=== PATIENT | female | born 1940 | race Caucasian/White ===

== ENCOUNTER 2018-06-17 09:32 | Day surgery (SDC) | payer MEDICARE, BC ==
[~2018-06-17 09:32] MED LIST: Lactated Ringers 1,000 ML IV SCH
[2018-06-17] MEDS ORDERED: fentaNYL 100 MCG/2 ML SDV ONE (11:31)
[2018-06-17] MEDS ORDERED: Propofol 200 MG/20 ML SDV ONE (11:31)
--- NOTE | 2018-06-18 10:17 | OR ---
PREOPERATIVE DIAGNOSIS: Personal history of polyp, family history of colon cancer. POSTOPERATIVE DIAGNOSIS: Normal colonoscopic exam. PROCEDURE DONE: Total flexible colonoscopy. INDICATION: This is a 77-year-old female who was recommended to have a followup colonoscopy, her last one being 4 years ago where several polyps were found. She also has a family history of her father with colon cancer. TECHNIQUE: The patient was brought to the endoscopy suite, placed in left lateral decubitus position. She was sedated per AIR TECHNICIAN with propofol. The flexible video colonoscope was then passed transanally under visualization, advanced to the cecum. Examination revealed a normal ascending, transverse, descending, and sigmoid, rectal colon. There was no evidence of any diverticulosis, colitis, polyps, or any other abnormalities. The scope was then withdrawn. She tolerated the procedure well. FINAL IMPRESSION: 1. Essentially normal coloscopic exam. 2. History of prior polyps. 3. Family history of colon cancer. PLAN: Based on her age, I feel that she no longer needs to proceed with colonoscopies. SCM: 06/17/2018 13:35:54 MODL: 06/17/2018 20:42:02 /[id number]
== END 2018-06-17 14:11 | disposition home or self-care (01) ==
LOC: VM.SDS 09:32
PROVIDERS: ATTEND Surgery
DX: Z12.11 Encounter for screening for malignant neoplasm of colon (principal); I10 Essential (primary) hypertension; E78.00 Pure hypercholesterolemia, unspecified; M17.0 Bilateral primary osteoarthritis of knee; Z86.010 Personal history of colon polyps; Z79.82 Long term (current) use of aspirin; Z79.899 Other long term (current) drug therapy; Z80.0 Family history of malignant neoplasm of digestive organs
CPT/HCPCS: G0105; J2704; J3010; J7120

== ENCOUNTER 2019-09-24 12:40 | Inpatient (IN) | payer MEDICARE, BC ==
[2019-09-24] MEDS ORDERED: Acetaminophen/Diphenhydramine 500-25 MG Tab PO PRN (16:45)
[2019-09-24] MEDS: traMADol 50 MG Tab PO PRN (17:56)
[2019-09-24] MEDS: Carvedilol 3.125 MG Tab PO SCH (17:56)
[2019-09-24] MEDS ORDERED: Apixaban 2.5 MG Tab PO ONE (18:00)
[2019-09-24] MEDS: Acetaminophen 650 MG Tab.ER PO SCH (20:12)
--- NOTE | 2019-09-24 23:43 | HP ---
PRIMARY DIAGNOSIS: Weakness, deconditioning. HISTORY OF PRESENT ILLNESS: The patient is an 78-year-old female, who is currently undergoing recovery from acute saddle bilateral pulmonary embolus. This had occurred in the setting shortly after right knee replacement surgery. She had undergone elective right knee replacement surgery at [facility] on 09/14/2019, had been discharged home on 09/15/2019. Then she started getting shortness of breath. She went to the emergency room at [facility] on 09/17/2019 and was found to have acute bilateral saddle PE and was sent back to [place]. While she was at [facility], it was noted that she was hypoxic. She was just treated conservatively with heparin and then switched to Eliquis. She did not need any sort of thrombectomy. While she was hospitalized she was also found to have a non-STEMI type 2. The patient was noted to then become quite deconditioned and quite weak with walking and is in need swing bed for reconditioning to be able to return home. The patient did have problems with a fever blister on her lip as well. MEDICATIONS: Medications that she is currently on are: Tylenol 650 b.i.d.; Tylenol PM 1 at bedtime p.r.n.; carvedilol 3.125 mg 1 pill twice a day; Eliquis 5 mg 1 pill twice a day, to start I believe in 2 weeks; Eliquis 10 mg 1 p.o. b.i.d.; glucosamine chondroitin complex 1 pill daily; multivitamin 1 pill daily; nystatin topical b.i.d. p.r.n. rash; MiraLAX 17 g daily; Zocor 10 mg 1 at bedtime; tramadol 50 mg q.6 hours p.r.n. ALLERGIES: None known. PAST MEDICAL HISTORY: The patient has a history of hypertension, hypercholesterolemia, obesity. She has had degenerative osteoarthritis of the right and left knee, known heart murmur by echocardiogram on 11/18/2018. The patient has had osteopenia with disorder of her bones. She has had varicose veins, chronic right shoulder pain. She has had right-sided low back pain, obesity. The patient had adenomatous colon polyps with her last scope on 02/18/2014, she had 3 polyps. In 2018, she had a normal scope. Her last DEXA scan was in 2016 and was stable. Next scan to be in 3 years. She has had a lipoma on her back, 1 cm, by her scapular area. She had a normal Cardiolite stress test in 2005, in 04/01/2018 was negative. She has had ptosis of her eyelids. Her echocardiogram on 11/18/2018 showed ejection fraction 65%. No significant aortic regurgitation. Trace mitral regurgitation. Trivial tricuspid regurgitation. PAST SURGICAL HISTORY: She has had C-sections x2, cataract surgery x2, YAG capsulotomy in the left eye on 04/27/2019, and she had right knee replacement surgery on 09/14/2019. FAMILY MEDICAL HISTORY: Mother has had bladder cancer, lung problems. Father has had a stroke. Sister has had hypertension, acute renal failure. Twin had some sort of skin cancer. One sister has diabetes. SOCIAL HISTORY: The patient is in 2008. She does not smoke. She rarely consumes alcohol. She [place] in [place] . 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 REVIEW OF SYSTEMS: She has a cold sore on her upper lip. No coughing. No shortness of breath. Does get deconditioned after walking about 10 feet. She has had some swelling on her right knee, more at the site of her surgery. Has no numbness or tingling. Mood is good. She has felt weak. PHYSICAL EXAMINATION: VITAL SIGNS: Her temperature is 37.7, pulse 80, blood pressure is 155/65, respirations are 20, saturations are 97%. SKIN: She has a cold sore on her right upper lip. She has multiple bruising on her forearms, left and right side. Her knee incision is well reapproximated. There is some edema around her knee. HEENT: Pharynx is normal. HEART: Regular rate and rhythm without murmurs or bruits. LUNGS: Clear to auscultation. NECK: Supple. No anterior cervical adenopathy. ABDOMEN: Soft and nontender. No hepatosplenomegaly. NEUROLOGIC: She moves all extremities symmetric. She is somewhat weak though throughout, generalized. PSYCHIATRIC: She is oriented x3. Mood is good. IMPRESSION: 1. Weakness post knee surgery. 2. Bilateral saddle pulmonary embolus. 3. Recent hypoxemia related to pulmonary embolism, which is improved. 4. Weakness, generalized from knee surgery. 5. Hypertension, which has been lifestyle controlled, but slightly elevated. 6. Hypercholesterolemia. 7. Fever blister. PLAN: We will have the patient be set up for physical therapy and occupational therapy. We will monitor her blood pressure. May need to more aggressively treat this. We will check a urine test on patient as well as blood work. The patient will have some Vaseline to her upper lip as it seems like she had received possibly Valtrex prior to being transferred from [place]. The patient will need to keep outpatient followup orthopedic appointments. I did talk with patient about code level status and she does desire full resuscitation. I anticipate patient's stay here on swing bed to be about a 2- week stay depending on how she progresses with therapies. We will have Social Service to follow along with patient. GM09/24/2019 17:10:19 MODL: 09/24/2019 23:33:14 /[id number]
[2019-09-25 07:16] LABS: CHLORIDE,CL 101 mmol/L (98-107); SODIUM,NA 140 mmol/L (136-145)
[2019-09-25 07:30] LABS: ANION GAP 13.1 mmol/L (10-20)
[2019-09-25] MEDS: Multivitamin, Stress Formula with Zinc Tab PO SCH (08:46)
[2019-09-25] MEDS: Carvedilol 3.125 MG Tab PO SCH ×2 (08:46→18:01)
[2019-09-25] MEDS: Simvastatin 10 MG Tab PO SCH (08:47)
[2019-09-25] MEDS: Acetaminophen 650 MG Tab.ER PO SCH ×2 (08:47→19:34)
[2019-09-25] MEDS: Apixaban 2.5 MG Tab PO SCH ×2 (08:47→19:36)
[2019-09-25] MEDS: Polyethylene Glycol 3350 Powder 17 GM Packet PO SCH ×2 (08:51→11:39)
[2019-09-25] MEDS: Glucosamine 500 MG Cap PO SCH (11:39)
[2019-09-25] MEDS: traMADol 50 MG Tab PO PRN (11:42)
--- NOTE | 2019-09-25 12:11 | PCM.SN ---
- Free Text/Narrative Note: Reviewed labs per PCP request as she is out today. Hgb stable. Rest without urgent abnormalities. Can be further addressed by PCP next week.
[2019-09-26] MEDS: Acetaminophen 650 MG Tab.ER PO SCH ×2 (08:07→20:46)
[2019-09-26] MEDS: Simvastatin 10 MG Tab PO SCH (08:07)
[2019-09-26] MEDS: Apixaban 2.5 MG Tab PO SCH ×2 (08:09→20:47)
[2019-09-26] MEDS: Multivitamin, Stress Formula with Zinc Tab PO SCH (08:09)
[2019-09-26] MEDS: Glucosamine 500 MG Cap PO SCH (08:09)
[2019-09-26] MEDS: Carvedilol 3.125 MG Tab PO SCH ×2 (08:09→17:50)
[2019-09-26] MEDS: Polyethylene Glycol 3350 Powder 17 GM Packet PO SCH (08:09)
[2019-09-26] MEDS: traMADol 50 MG Tab PO PRN (11:21)
[2019-09-27] MEDS: Glucosamine 500 MG Cap PO SCH (07:53)
[2019-09-27] MEDS: Multivitamin, Stress Formula with Zinc Tab PO SCH (07:53)
[2019-09-27] MEDS: Acetaminophen 650 MG Tab.ER PO SCH ×2 (07:53→19:39)
[2019-09-27] MEDS: Carvedilol 3.125 MG Tab PO SCH ×2 (07:53→17:59)
[2019-09-27] MEDS: Simvastatin 10 MG Tab PO SCH (07:53)
[2019-09-27] MEDS: Polyethylene Glycol 3350 Powder 17 GM Packet PO SCH (07:55)
[2019-09-27] MEDS: Apixaban 2.5 MG Tab PO SCH ×2 (07:55→19:41)
[2019-09-27] MEDS: traMADol 50 MG Tab PO PRN ×2 (07:57→14:11)
[2019-09-28] MEDS: traMADol 50 MG Tab PO PRN ×3 (05:58→20:48)
[2019-09-28] MEDS: Simvastatin 10 MG Tab PO SCH (08:12)
[2019-09-28] MEDS: Multivitamin, Stress Formula with Zinc Tab PO SCH (08:12)
[2019-09-28] MEDS: Polyethylene Glycol 3350 Powder 17 GM Packet PO SCH (08:12)
[2019-09-28] MEDS: Carvedilol 3.125 MG Tab PO SCH ×2 (08:12→18:30)
[2019-09-28] MEDS: Apixaban 2.5 MG Tab PO SCH ×2 (08:12→19:21)
[2019-09-28] MEDS: Glucosamine 500 MG Cap PO SCH (08:12)
[2019-09-28] MEDS: Acetaminophen 650 MG Tab.ER PO SCH ×2 (08:12→19:20)
[2019-09-29] MEDS: Acetaminophen 650 MG Tab.ER PO SCH ×2 (07:30→21:08)
[2019-09-29] MEDS: Carvedilol 3.125 MG Tab PO SCH ×2 (07:31→17:29)
[2019-09-29] MEDS: Glucosamine 500 MG Cap PO SCH (07:32)
[2019-09-29] MEDS: Polyethylene Glycol 3350 Powder 17 GM Packet PO SCH (07:32)
[2019-09-29] MEDS: Multivitamin, Stress Formula with Zinc Tab PO SCH (07:32)
[2019-09-29] MEDS: Simvastatin 10 MG Tab PO SCH (07:32)
[2019-09-29] MEDS: Apixaban 2.5 MG Tab PO SCH ×2 (07:32→20:20)
[2019-09-29] MEDS: tiZANidine 4 MG Tab PO PRN (09:28)
--- NOTE | 2019-09-29 10:13 | PN ---
Progress Note for RAINA GRIJALVA Date: 09/29/2019 Room #: .214 SUBJECTIVE: The patient is still having considerable soreness behind her right posterior calf. She says she does not have much strength in it. Otherwise, she is getting stronger. She has not been coughing or short of breath. She did need 3 tramadol yesterday for pain control. She does have scheduled Tylenol twice a day as well as p.r.n. Tylenol as well. OBJECTIVE: Vital Signs: Her temperature is 36.2, pulse is 75, blood pressure is 140/58, her saturations are 95% on room air, and respiratory rate 16. Heart: Regular rate and rhythm. Lungs: Clear to auscultation. Abdomen: Soft. Extremities: Incision on right knee is well reapproximated. LABORATORY DATA: Laboratory work that was done on 09/25/2019 showed hemoglobin 9.8, sodium 140, potassium 5.1, total bilirubin is 1.2, and alkaline phosphatase 184. Urine has been normal. IMPRESSION: 1. Deconditioning, post right knee surgery. 2. Bilateral pulmonary embolism, on lungs. 3. Hypoxemia, which is resolving. 4. Borderline hypertension, controlled with lifestyle. 5. Anemia secondary to blood loss. PLAN: We will continue therapies. We will offer muscle relaxant to see if that helps with her leg pain, and she had been downgraded to a lower dose of Eliquis right now, and it is felt after discussing with anticoagulation clinic that she will need treatment for 3 months since this was provoked by her surgery and not recurrent blood clot. GM09/29/2019 08:54:47 MODL: 09/29/2019 10:07:36 /[id number]
[2019-09-29] MEDS: traMADol 50 MG Tab PO PRN ×2 (12:52→21:15)
[2019-09-30] MEDS: traMADol 50 MG Tab PO PRN ×2 (05:57→18:40)
[2019-09-30] MEDS: Carvedilol 3.125 MG Tab PO SCH ×2 (08:54→18:34)
[2019-09-30] MEDS: Apixaban 2.5 MG Tab PO SCH ×2 (08:55→20:36)
[2019-09-30] MEDS: Acetaminophen 650 MG Tab.ER PO SCH ×2 (08:56→20:35)
[2019-09-30] MEDS: Simvastatin 10 MG Tab PO SCH (08:56)
[2019-09-30] MEDS: Glucosamine 500 MG Cap PO SCH (08:56)
[2019-09-30] MEDS: Multivitamin, Stress Formula with Zinc Tab PO SCH (08:56)
[2019-09-30] MEDS: Polyethylene Glycol 3350 Powder 17 GM Packet PO SCH (09:48)
[2019-10-01 07:18] LABS: ANION GAP 12.4 mmol/L (10-20); CHLORIDE,CL 103 mmol/L (98-107); SODIUM,NA 141 mmol/L (136-145)
[2019-10-01] MEDS: Acetaminophen 650 MG Tab.ER PO SCH ×2 (08:14→19:50)
[2019-10-01] MEDS: Carvedilol 3.125 MG Tab PO SCH ×2 (08:15→17:28)
[2019-10-01] MEDS: Multivitamin, Stress Formula with Zinc Tab PO SCH (08:15)
[2019-10-01] MEDS: Apixaban 2.5 MG Tab PO SCH ×2 (08:15→19:50)
[2019-10-01] MEDS: Simvastatin 10 MG Tab PO SCH (08:15)
[2019-10-01] MEDS: Glucosamine 500 MG Cap PO SCH (08:18)
[2019-10-01] MEDS: Polyethylene Glycol 3350 Powder 17 GM Packet PO SCH (08:18)
[2019-10-01] MEDS: traMADol 50 MG Tab PO PRN ×2 (11:37→19:50)
[2019-10-02] MEDS: Carvedilol 3.125 MG Tab PO SCH ×2 (07:58→17:05)
[2019-10-02] MEDS: Apixaban 2.5 MG Tab PO SCH ×2 (07:58→19:58)
[2019-10-02] MEDS: Polyethylene Glycol 3350 Powder 17 GM Packet PO SCH (07:59)
[2019-10-02] MEDS: Glucosamine 500 MG Cap PO SCH (07:59)
[2019-10-02] MEDS: Multivitamin, Stress Formula with Zinc Tab PO SCH (07:59)
[2019-10-02] MEDS: Simvastatin 10 MG Tab PO SCH (07:59)
[2019-10-02] MEDS: Acetaminophen 650 MG Tab.ER PO SCH ×2 (08:01→19:58)
[2019-10-02] MEDS: traMADol 50 MG Tab PO PRN ×2 (08:02→13:47)
[2019-10-02] MEDS ORDERED: Hypromellose 0.3% Ophth Soln 15 ML Bottle EYEBOTH PRN ×2 (10:10→10:11)
[2019-10-03] MEDS: Glucosamine 500 MG Cap PO SCH (08:50)
[2019-10-03] MEDS: Acetaminophen 650 MG Tab.ER PO SCH ×2 (08:50→20:21)
[2019-10-03] MEDS: Apixaban 2.5 MG Tab PO SCH ×2 (08:50→20:21)
[2019-10-03] MEDS: Simvastatin 10 MG Tab PO SCH (08:50)
[2019-10-03] MEDS: Multivitamin, Stress Formula with Zinc Tab PO SCH (08:50)
[2019-10-03] MEDS: Hypromellose 0.3% Ophth Soln 15 ML Bottle EYEBOTH SCH (08:50)
[2019-10-03] MEDS: Carvedilol 3.125 MG Tab PO SCH ×2 (08:51→17:36)
[2019-10-03] MEDS: Polyethylene Glycol 3350 Powder 17 GM Packet PO SCH (08:51)
[2019-10-03] MEDS ORDERED: Acetaminophen 500 MG Tab PO ONE (11:52)
[2019-10-03] MEDS: traMADol 50 MG Tab PO PRN (12:20)
[2019-10-03 12:36] LABS: ANION GAP 14.6 mmol/L (10-20); CHLORIDE,CL 101 mmol/L (98-107); SODIUM,NA 141 mmol/L (136-145)
--- NOTE | 2019-10-03 14:30 | PCM.SN ---
- Free Text/Narrative Note: Nursing contacted it consulting director provider regarding patient complaining of generalized malaise, increase in tenderness and swelling on the right knee. She was admitted last evening to swing bed post right knee replacement. Patient denies any nausea, vomiting, fever, chest pain, shortness breath, or visual changes. Patient also states that her range of motion has not changed regarding her right knee. However this morning she woke up feeling general tired and fatigued. She also states that she has no so little bit of swelling on that right knee. She admits to not having her leg elevated as much as she has been in the most recent days. ROS: All systems negative except above pertinent information Objective: Vital signs: reviewed per nursing and remain stable Heart: Regular rate and rhythm lungs: Clear bilateral breath sounds with no adventitious sounds Abdomen: Active bowel sounds 4, soft, nontender no masses noted Extremities: Right knee incision healing well without signs infection. Mild swelling noted to the right knee. No redness, tenderness, or ecchymosis noted Assessment/Plan: 1. right knee swelling - Nursing instructed to elevate the patient's lower extremity as much as possible - Compression/omar wrap is also advised if necessary to help with decrease of swelling - Ice can be applied to help with swelling - Single time Tylenol can be administered to help with any pain and discomfort. She does have scheduled Tylenol as well - Labs ordered for today. Results reviewed with patient and family 2. General malaise - Labs ordered for today. Results reviewed with patient and family Nursing staff is instructed to contact the on-call provider if necessary for any further changes. Patient is updated regarding the plan of care. She agrees with the above plan care. All questions and concerns were addressed
[2019-10-04] MEDS: Carvedilol 3.125 MG Tab PO SCH ×2 (08:41→17:26)
[2019-10-04] MEDS: Acetaminophen 650 MG Tab.ER PO SCH ×2 (08:41→19:10)
[2019-10-04] MEDS: Apixaban 2.5 MG Tab PO SCH ×2 (08:42→19:10)
[2019-10-04] MEDS: Simvastatin 10 MG Tab PO SCH (08:42)
[2019-10-04] MEDS: Glucosamine 500 MG Cap PO SCH (08:42)
[2019-10-04] MEDS: Multivitamin, Stress Formula with Zinc Tab PO SCH (08:42)
[2019-10-04] MEDS: Polyethylene Glycol 3350 Powder 17 GM Packet PO SCH (08:42)
[2019-10-04] MEDS: Hypromellose 0.3% Ophth Soln 15 ML Bottle EYEBOTH SCH (08:43)
[2019-10-04] MEDS: tiZANidine 4 MG Tab PO PRN (08:45)
--- NOTE | 2019-10-04 19:36 | PCM.PN ---
- General Info Date of Service: 10/04/19 Subjective Update: Pt. admitted swing bed following R total knee replacement with complications consisting of saddle embolus. She underwent surgery at [facility] and was discharged back to [place]. She developed dyspnea and was transferred to [facility] for the pulmonary embolism. She was treated with heparin and is now on eliquis. Nursing has noted increased circumference to R lower extremity calf. She states that she also has some new burning/tingling sensation to the ball of her foot. Denies any new trauma. No fever or chills today. She was rounded on yesterday by Charu HALE for general malaise and weakness. CBC and CMP were within normal limits. Pt. reports some improvement in those symptoms. Functional Status: Reports: Pain Controlled - Review of Systems General: Reports: No Symptoms HEENT: Reports: No Symptoms Pulmonary: Reports: Shortness of Breath (no worse than normal) Cardiovascular: Reports: No Symptoms Gastrointestinal: Reports: No Symptoms Genitourinary: Reports: No Symptoms Musculoskeletal: Reports: Leg Pain (pain to ball of foot) Skin: Reports: No Symptoms Neurological: Reports: No Symptoms Psychiatric: Reports: No Symptoms - Patient Data Vitals - Most Recent: Last Vital Signs Temp 36.8 C 10/04/19 18:00 Pulse 83 10/04/19 18:00 Resp 20 10/04/19 18:00 BP 121/72 10/04/19 18:00 Pulse Ox 96 10/04/19 18:00 Weight - Most Recent: 78.018 kg I&O - Last 24 Hours: Intake & Output 10/04/19 10/04/19 10/04/19 06:59 14:59 22:59 Intake Total 300 120 Balance 300 120 Med Orders - Current: Current Medications Acetaminophen (Tylenol Arthritis Pain) 650 mg PO BID [facility] Last Admin: 10/04/19 19:10 Dose: 650 mg Acetaminophen/Diphenhydramine HCl (Tylenol Pm Extra Strength) 1 tab PO BEDTIME PRN PRN Reason: Insomnia Apixaban (Eliquis) 5 mg PO BID [facility] Last Admin: 10/04/19 19:10 Dose: 5 mg Artificial Tears (Genteal Mild To Moderate Ophth Soln) 1 ml EYEBOTH Q1H PRN PRN Reason: Dry Eyes Artificial Tears (Genteal Mild To Moderate Ophth Soln) 0 ml EYEBOTH DAILY [facility] Last Admin: 10/04/19 08:43 Dose: 1 drop Carvedilol (Coreg) 3.125 mg PO BIDMEALS [facility] Last Admin: 10/04/19 17:26 Dose: 3.125 mg Glucosamine Sulfate (Glucosamine Sulfate) 500 mg PO DAILY [facility] Last Admin: 10/04/19 08:42 Dose: 500 mg Nystatin/Triamcinolone Acetonide (Mycolog Crm) 0 gm TOP BID PRN PRN Reason: Rash Polyethylene Glycol (Miralax) 17 gm PO DAILY [facility] Last Admin: 10/04/19 08:42 Dose: Not Given Simvastatin (Zocor) 10 mg PO DAILY [facility] Last Admin: 10/04/19 08:42 Dose: 10 mg Tizanidine HCl (Zanaflex) 2 mg PO Q6H PRN PRN Reason: Muscle Spasm Last Admin: 10/04/19 08:45 Dose: 2 mg Tramadol HCl (Ultram) 50 mg PO Q6H PRN PRN Reason: Pain (moderate 4-6) Last Admin: 10/03/19 12:20 Dose: 50 mg Vitamin B Complex/Vit C/Vit E/Zinc (Stress Formula With Zinc) 1 tab PO DAILY [facility] Last Admin: 10/04/19 08:42 Dose: 1 tab Discontinued Medications Acetaminophen (Tylenol Extra Strength) 500 mg PO ONETIME ONE Stop: 10/03/19 11:53 Last Admin: 10/03/19 12:18 Dose: 500 mg Apixaban (Eliquis) 10 mg PO BID [facility] Stop: 09/27/19 20:59 Last Admin: 09/27/19 19:41 Dose: 10 mg Apixaban (Eliquis) 10 mg PO ONETIME ONE Stop: 09/24/19 18:01 Last Admin: 09/24/19 18:22 Dose: Not Given Artificial Tears (Genteal Mild To Moderate Ophth Soln) 1 ml EYEBOTH Q1H PRN PRN Reason: Dry Eyes - Exam General: Alert, Oriented Extremities: Other (Increased edema to R lower extremity. Calf circ. 15.25cm vs. 15 cm on the left. Surgical incision is dry and non-erythematous. Exremity is warm. No duskiness noted. ) Sepsis Event Note - Evaluation Sepsis Screening Result: No Definite Risk - Focused Exam Vital Signs: Vital Signs Temp Pulse Pulse Resp BP BP Pulse Ox 10/04/19 18:00 36.8 C 83 20 121/72 96 10/04/19 17:26 82 153/77 H 10/04/19 08:41 82 153/77 H Date Exam was Performed: 10/04/19 Time Exam was Performed: 19:29 - Problem List Review Problem List Initiated/Reviewed/Updated: Yes - My Orders Last 24 Hours: My Active Orders 10/04/19 19:27 VL Duplex Lwr Ext Veins Ltd Rt [US] Routine - Plan Plan:: R lower extremity duplex US was ordered for tomorrow. Her D dimer will be positive given her PMH. Pt. is currently on eliquis. Discussed symptoms with patient. Alert the nurse if any increased shortness of breath or shortness of breath. All questions were answered.
[2019-10-04] MEDS: traMADol 50 MG Tab PO PRN (21:28)
[2019-10-05] MEDS: Glucosamine 500 MG Cap PO SCH (07:29)
[2019-10-05] MEDS: Carvedilol 3.125 MG Tab PO SCH ×2 (07:29→17:27)
[2019-10-05] MEDS: Polyethylene Glycol 3350 Powder 17 GM Packet PO SCH (07:30)
[2019-10-05] MEDS: Hypromellose 0.3% Ophth Soln 15 ML Bottle EYEBOTH SCH (07:30)
[2019-10-05] MEDS: Multivitamin, Stress Formula with Zinc Tab PO SCH (07:30)
[2019-10-05] MEDS: Simvastatin 10 MG Tab PO SCH (07:30)
[2019-10-05] MEDS: Acetaminophen 650 MG Tab.ER PO SCH ×2 (07:30→19:47)
[2019-10-05] MEDS: Apixaban 2.5 MG Tab PO SCH ×2 (07:30→19:47)
--- NOTE | 2019-10-05 09:19 | PN ---
Progress Note for RAINA GRIJALVA Date: 10/05/2019 Room #: VM.214 SUBJECTIVE: The patient has been having increased pain behind her right posterior knee, mainly on the medial aspect of it. She was seen both 2 days ago and yesterday by the on-call providers who had done lab work which came back normal. She is set up for an ultrasound of her legs today to know when she was in [place] on 09/18/2019 she had a venous duplex ultrasound on both legs, which did show acute occlusive DVT present in 1 of 2 right peroneal veins. No evidence of DVT of the left leg and vascular structure in the right popliteal fossa, likely a Rosenberg's cyst measuring 1.2 cm x 2 to 4 cm x 5.6 cm. She then had a followup ultrasound of her right leg on 09/21/2019, which had not changed. She also underwent a soft tissue ultrasound on the right leg on 09/21/2019, which showed a complex popliteal fossa fluid collection, which possibly represents a hematoma versus a Rosenberg cyst, not likely to be infected. 1.4 cm fluid collection in the subcutaneous tissue on the lateral knee is also postoperatively noted. OBJECTIVE: Vital Signs: Her temperature is 36.2, pulse 74, blood pressure is 137/76, respiratory rate 16, saturations are 96. Heart: Regular rate and rhythm. Lungs: Clear to auscultation. Abdomen: Soft. Extremities: Right knee has well-reapproximated incision. She has prominent tissue on the medial aspect of her posterior right knee. Calf itself appears normal. LABORATORY DATA: Labs that were done on 10/03/2019 shows white blood cell count 6.9, hemoglobin 11.4, platelets 662. Sodium 151, potassium 5.6, creatinine 0.8. GFR greater than 60, BUN 17, glucose 136. LFTs were normal other than alkaline phosphatase was slightly elevated at 137, but improved from admission at 184. IMPRESSION: 1. Postoperative right knee replacement. 2. Right knee pain continues. 3. 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 4. Saddle pulmonary embolus. 5. Deconditioning. 6. Anemia, which is improving. PLAN: We will see what her ultrasound shows today. We will encourage her to use an [place] wrap for her knee as well as she is icing it. She has a muscle relaxant as well as pain pills. She is improving with therapies and do anticipate discharge home fairly soon. GM10/05/2019 08:33:51 MODL: 10/05/2019 09:13:47 /[id number]
[2019-10-05] MEDS: traMADol 50 MG Tab PO PRN ×2 (10:01→19:46)
--- NOTE | 2019-10-05 11:59 | US ---
[id number] US/US Venous Doppler LE Right EXAM: US Venous Doppler LE Right CLINICAL DATA: RIGHT LOWER EXTREMITY SWELLING COMPARISON: NO PREVIOUS SIMILAR EXAM IS AVAILABLE FINDINGS: A 5 cm Rosenberg's cyst is identified There is no deep vein thrombosis. The veins are compressible. The valves are competent. IMPRESSION: NO EVIDENCE OF DEEP VEIN THROMBOSIS. Maxwell Moctezuma MD 10/05/19 [id number] Thank you for allowing us to participate in the care of your patient.
[2019-10-06] MEDS: Carvedilol 3.125 MG Tab PO SCH ×2 (09:24→18:38)
--- NOTE | 2019-10-06 09:24 | PN ---
Progress Note for RAINA GRIJALVA Date: 10/06/2019 Room #: VM.214 SUBJECTIVE: She is getting better. She still does have pain behind her right knee. Ultrasound done yesterday showed a Rosenberg cyst present. No evidence of clots behind her knee. Otherwise, she is progressing with PT and OT. She will need home health when she is discharged home. Therapies will be done tomorrow, but she would prefer because of distance from hospital to be discharged on 10/08/2019. She says the muscle relaxers do help at times. OBJECTIVE: Vital Signs: Her temperature is 36.7, pulse 73, blood pressure is 136/66, respiratory rate 16, saturations are 96%. General: She is alert, pleasant to visit with. Heart: Regular rate and rhythm. Lungs: Clear to auscultation. Extremities: Right knee incision is well reapproximated. She still does have some swelling about the posterior aspect of the knee. There is no redness present. LABORATORY DATA: Her lab work was done today. IMPRESSION: 1. Deconditioning post right knee surgery. 2. Pulmonary embolism bilaterally. 3. Rosenberg cyst of right knee. 4. Hypertension. 5. Anemia, which is improved. PLAN: We will make plans for discharge for the patient. Her medications will be sent. She will have her tramadol for pain as well as carvedilol for blood pressure. Her Eliquis use will be for 3 months and she will have tizanidine. She will be followed up by Ortho on 10/21/2019, and we will have her return to see me in 3 weeks as I am going in 2 weeks. Today [id number] exam was held with the patient with need for home health. The patient is recovering from knee surgery. She uses a walker. She cannot walk more than 50 feet without assistance. The patient would require others to drive for her. The patient needs home physical therapy as well as occupational therapy as well as nurse to assess her blood pressure. All of these are when monitoring her progress with home health as well. The patient is full code level status at the time of discharge. GM10/06/2019 08:36:25 MODL: 10/06/2019 09:17:43 /[id number]
[2019-10-06] MEDS: Acetaminophen 650 MG Tab.ER PO SCH ×2 (09:25→19:53)
[2019-10-06] MEDS: Simvastatin 10 MG Tab PO SCH (09:25)
[2019-10-06] MEDS: Apixaban 2.5 MG Tab PO SCH ×2 (09:26→19:54)
[2019-10-06] MEDS: Glucosamine 500 MG Cap PO SCH (09:26)
[2019-10-06] MEDS: Multivitamin, Stress Formula with Zinc Tab PO SCH (09:26)
[2019-10-06] MEDS: traMADol 50 MG Tab PO PRN ×2 (09:27→19:53)
[2019-10-06] MEDS: Polyethylene Glycol 3350 Powder 17 GM Packet PO SCH (09:28)
[2019-10-06] MEDS: Hypromellose 0.3% Ophth Soln 15 ML Bottle EYEBOTH SCH (09:29)
[2019-10-07] MEDS: Acetaminophen 650 MG Tab.ER PO SCH ×2 (08:15→20:10)
[2019-10-07] MEDS: Glucosamine 500 MG Cap PO SCH (08:16)
[2019-10-07] MEDS: Carvedilol 3.125 MG Tab PO SCH ×2 (08:17→17:39)
[2019-10-07] MEDS: Apixaban 2.5 MG Tab PO SCH ×2 (08:17→20:10)
[2019-10-07] MEDS: Simvastatin 10 MG Tab PO SCH (08:17)
[2019-10-07] MEDS: Multivitamin, Stress Formula with Zinc Tab PO SCH (08:17)
[2019-10-07] MEDS: Polyethylene Glycol 3350 Powder 17 GM Packet PO SCH (08:18)
[2019-10-07] MEDS: Hypromellose 0.3% Ophth Soln 15 ML Bottle EYEBOTH SCH (08:18)
[2019-10-07] MEDS: traMADol 50 MG Tab PO PRN (10:01)
[2019-10-08] MEDS: traMADol 50 MG Tab PO PRN ×2 (02:40→11:27)
[2019-10-08] MEDS: Acetaminophen 650 MG Tab.ER PO SCH (09:46)
[2019-10-08] MEDS: Glucosamine 500 MG Cap PO SCH (09:46)
[2019-10-08] MEDS: Apixaban 2.5 MG Tab PO SCH (09:46)
[2019-10-08] MEDS: Simvastatin 10 MG Tab PO SCH (09:48)
[2019-10-08] MEDS: Carvedilol 3.125 MG Tab PO SCH (09:48)
[2019-10-08] MEDS: Multivitamin, Stress Formula with Zinc Tab PO SCH (09:48)
[2019-10-08] MEDS: Hypromellose 0.3% Ophth Soln 15 ML Bottle EYEBOTH SCH (09:50)
[2019-10-08] MEDS: Polyethylene Glycol 3350 Powder 17 GM Packet PO SCH (09:51)
--- NOTE | 2019-10-09 00:48 | DISCH ---
PRIMARY DIAGNOSES: 1. Deconditioning post right knee surgery. 2. Bilateral saddle pulmonary embolus. 3. Rosenberg cyst behind right knee. 4. Anemia secondary to blood loss. 5. Hypertension. 6. Hypercholesterolemia. SUMMARY OF HISTORY AND PHYSICAL: The patient was admitted on 09/24/2019 for need for restrengthening after right knee surgery. She had undergone knee surgery on 09/14/2019 and discharged on 09/15/2019. However, she then became very short of breath on 09/17/2019 and was discovered to have bilateral saddle pulmonary embolus, was sent back to [facility]. She was started on Eliquis for anticoagulant therapy, and due to her hypoxemia and shortness of breath, she became much more deconditioned. She did have a non-STEMI type 2. When she presented to swing bed, she was noted to have use of a walker. She was not needing oxygen. Her incision was well reapproximated. She did have a fever blister on her lip. SUMMARY OF SWING BED COURSE: The patient received physical therapy and occupational therapy. LABORATORY WORK: Showed that her hemoglobin on admission was 9.8, white blood cell count 8.0, platelets 534. Sodium 140, potassium 5.1, creatinine 0.8, GFR greater than 60, total bili 1.2, alk phos 184. Urine came back normal. It was cultured. By 10/03/2019, her hemoglobin was up to 11.4, white blood cell count 6.9. Sodium is 141, potassium was 5.6, felt to be more hemolysis. Her creatinine was 0.8, glucose 136, which was not fasting, alk phos 137. To note, patient had problems with extreme right posterior knee pain. She did undergo an ultrasound of her right leg on 10/05/2019. It showed a 5 cm Rosenberg cyst present. No DVT was present at that time. The patient received muscle relaxant to see if that would help with discomfort. Her blood pressure was marginally controlled while she was hospitalized. It was 148/57 at discharge. The carvedilol medication had been new for her and may need to be increased as an outpatient. The patient had documentation of need for home health that was done on her chart on 10/06/2019. MEDICATIONS AT THE TIME OF DISCHARGE: Glucosamine chondroitin 1 pill daily, Zocor 10 mg 1 pill at bedtime, MiraLAX 17 g daily, nystatin powder twice a day b.i.d. p.r.n. rash, Tylenol PM 1 at bedtime p.r.n., Tylenol Arthritis 650 twice a day, multivitamin 1 pill daily, tizanidine 2 mg 1 pill q.6 hours p.r.n. muscle spasm, Eliquis 5 mg 1 pill twice a day, which she will be on for 3-month course of therapy, carvedilol 3.125 mg 1 pill twice a day, tramadol 50 mg 1 pill every 6 hours as needed. The patient will follow Physical Therapy's recommendation for use of a walker. Her incision looked well at the time of discharge. The patient will be followed up by Ortho on 10/21/2019. She will see me in 3 weeks' time. The patient's code level status at the time of discharge is full code. GM10/08/2019 08:21:33 MODL: 10/09/2019 00:41:21 /[id number]
== END 2019-10-08 12:00 | disposition home health service (06) | DRG 559 ==
LOC: VM.MS 15:44
PROVIDERS: ADMIT Family Medicine; ATTEND Family Medicine
DX: Z47.1 Aftercare following joint replacement surgery (principal); I26.92 Saddle embolus of pulmonary artery without acute cor pulmonale; I21.A1 Myocardial infarction type 2; Z96.651 Presence of right artificial knee joint; R53.81 Other malaise; M71.21 Synovial cyst of popliteal space [Baker], right knee; D64.9 Anemia, unspecified; I10 Essential (primary) hypertension; Z79.01 Long term (current) use of anticoagulants; Z79.899 Other long term (current) drug therapy
CPT/HCPCS: 36415; 80053; 81001; 85025; 87086; 93971-RT; 97110-GP; 97116-GP; 97161-GP; 97165-GO; 97535-GO; A9270-GY